=== PATIENT | female | born 1940 | race Caucasian/White ===

== ENCOUNTER → 2017-03-14 | Outpatient (CLI) | payer MEDICARE, OTHER ==
--- NOTE | 2017-03-14 13:43 | BD ---
EXAMINATION TYPE: MG DEXA axial skeleton. DATE OF EXAM: 03/14/2017 COMPARISON: NONE CLINICAL HISTORY: Breast CA C50.412, PMS N95.1 Height: 198 Weight: 5 FT 2 1/2 IN FRAX RISK QUESTIONS: Alcohol (3 or more units per day): NO Family History (Parent hip fracture): NO Glucocorticoids (More than 3mos): YES (Ex: prednisone, prednisolone, methylprednisolone, dexamethasone, and hydrocortisone). History of Fracture in Adulthood: NO Secondary Osteoporosis: 1. Type 1 Diabetes: NO 2. Hyperthyroidism: NO 3. Menopause before 45: NO 4. Malnutrition: NO 5. Chronic liver disease: NO Rheumatoid Arthritis: NO Current Tobacco Use: NO RISK FACTORS HISTORY OF: Drink Alcohol: VERY RARELY Active: YES Postmenopausal woman: PARTIAL HYST AGE 40 MEDICATIONS: Prednisone or other steroids: STEROIDS FOR ASTHMA How Lon TIMES DAILY FOR 4 YRS Thyroid Medications: YES Which medication: LEVOTHYROXINE How Long: SINCE AGE 17 Additional Medications: NORVASC,LIPITOR, ZIAC, CENTRUM, PLAVIX, GLIPIZIDE , JANUVIA, FEMARA, SYNTHROI D, QVAR INHALER, ZANTAC, DETROL, B12, VIT D, ZETIA Additional History: BREAST CA RT BREAST AND LEFT BREAST 2003 EXAM MEASUREMENTS: Bone mineral densitometry was performed using the [email or web address] System. Bone mineral density as measured about the Lumbar spine is: ----- L1-L4(G/cm2): 1.250 T Score Values are as follows: ----- L2: 0.3 ----- L3: 0.9 ----- L4: 0.9 ----- L1-L4: 0.6 Bone mineral density has: Decreased -0.3% since study of: 2008 Bone mineral density about the R hip (g/cm2): 0.826 Bone mineral density about the L hip (g/cm2): 0.797 T Score values are as follows: -----R Neck: -1.5 -----L Neck: -1.7 -----R Total: -1.5 -----L Total: -1.5 Bone mineral density has: Decreased -8.6% since study of: 2008 IMPRESSION: Osteopenia (T Score between -2.5 and -1 as noted by T score values There is slightly increased risk of fracture and the patient may be considered for treatment. Re-Screen 2-5 years. MIRTA HIPS NOTE: T-SCORE=SD OF THE YOUNG ADULT MEAN.
== END | disposition home or self-care (01) ==
LOC: RADBDWWP 12:55
PROVIDERS: ATTEND Internal Medicine Hematology & Oncology
DX: M85.852 Other specified disorders of bone density and structure, left thigh (principal); M85.851 Other specified disorders of bone density and structure, right thigh
CPT/HCPCS: 77080

== ENCOUNTER → 2017-03-22 | Outpatient (CLI) | payer MEDICARE, OTHER ==
[2017-03-22 11:21] LABS: CH 30.6; CHCM 33.9; HCT 37.4 % (34.0-46.0); HGB 12.9 gm/dL (11.4-16.0); MCH 31.2 pg (25.0-35.0); MCHC 34.4 g/dL (31.0-37.0); MCV 90.8 fL (80.0-100.0); RBC 4.12 m/uL (3.80-5.40); RDW 13.9 % (11.5-15.5); WBC 6.7 k/uL (3.8-10.6)
[2017-03-22 11:33] LABS: Appearance,Urine Clear (Clear); Bilirubin,Urine Negative (Negative); Glucose,Urine (UA) Negative (Negative); Ketones,Urine Negative (Negative); Leukocyte Esterase,Urine Negative (Negative); Nitrite,Urine Negative (Negative); PH, Urine 6.5 (5.0-8.0); Protein,Urine Trace (Negative); Specific Gravity,Urine 1.015 (1.001-1.035); UA Billing (MACRO vs. MICRO) CHEM; Urobilinogen,Urine <2.0 mg/dL (<2.0)
[2017-03-22 12:01] LABS: ALT 26 U/L (9-52); AST 18 U/L (14-36); Alkaline Phosphatase 60 U/L (38-126); Anion Gap 11 mmol/L; Blood Urea Nitrogen 17 mg/dL (7-17); Calcium 9.8 mg/dL (8.4-10.2); Carbon Dioxide 25 mmol/L (22-30); Chloride 105 mmol/L (98-107); Cholesterol 153 mg/dL (<200); Creatine Kinase 36 U/L (30-135); Glucose 169 mg/dL (74-99); HDL Cholesterol 60 mg/dL (40-60); Non-African American GFR(MDRD) >60 (>60 ml/min/1.73 sqM); Potassium 4.1 mmol/L (3.5-5.1); Sodium 141 mmol/L (137-145); Total Bilirubin 0.6 mg/dL (0.2-1.3); Total Protein 7.2 g/dL (6.3-8.2); Triglycerides 121 mg/dL (<150)
[2017-03-22 12:46] LABS: Hemoglobin A1C 7.3 % (4.2-6.1)
== END | disposition home or self-care (01) ==
LOC: LABWHC1 10:27
PROVIDERS: ATTEND Family Medicine
DX: Z00.00 Encounter for general adult medical examination without abnormal findings (principal); E11.9 Type 2 diabetes mellitus without complications; E55.9 Vitamin D deficiency, unspecified
CPT/HCPCS: 36415; 80053; 80061; 81003; 82043; 82306; 82550; 83036; 84443; 85027

== ENCOUNTER → 2017-11-05 | Outpatient (CLI) | payer MEDICARE, OTHER ==
[2017-11-05 17:24] LABS: Hemoglobin A1C 7.4 % (4.0-6.0)
== END | disposition home or self-care (01) ==
LOC: LABWHC1 08:40
PROVIDERS: ATTEND Family Medicine
DX: E11.9 Type 2 diabetes mellitus without complications (principal)
CPT/HCPCS: 36415; 83036

== ENCOUNTER → 2018-04-17 | Outpatient (CLI) | payer MEDICARE, OTHER ==
[2018-04-17 11:28] LABS: HCT 40.9 % (34.0-46.0); HGB 13.4 gm/dL (11.4-16.0); MCHC 32.9 g/dL (31.0-37.0); MCV 91.1 fL (80.0-100.0); Platelet Count 176 k/uL (150-450); RBC 4.49 m/uL (3.80-5.40); RDW 14.4 % (11.5-15.5); WBC 7.5 k/uL (3.8-10.6)
[2018-04-17 11:32] LABS: Appearance,Urine Clear (Clear); Bilirubin,Urine Negative (Negative); Blood,Urine Negative (Negative); Color,Urine Light Yellow; Glucose,Urine (UA) Negative (Negative); Ketones,Urine Negative (Negative); Leukocyte Esterase,Urine Negative (Negative); Nitrite,Urine Negative (Negative); Protein,Urine Negative (Negative); Specific Gravity,Urine 1.008 (1.001-1.035); Urobilinogen,Urine <2.0 mg/dL (<2.0)
[2018-04-17 11:44] LABS: ALT 29 U/L (9-52); AST 21 U/L (14-36); Albumin 4.2 g/dL (3.5-5.0); Alkaline Phosphatase 66 U/L (38-126); Anion Gap 15 mmol/L; Blood Urea Nitrogen 11 mg/dL (7-17); Calcium 9.8 mg/dL (8.4-10.2); Carbon Dioxide 27 mmol/L (22-30); Chloride 100 mmol/L (98-107); Cholesterol 137 mg/dL (<200); Glucose 164 mg/dL (74-99); HDL Cholesterol 58 mg/dL (40-60); LDL Cholesterol,Calculated 55 mg/dL (0-99); Potassium 4.2 mmol/L (3.5-5.1); Sodium 142 mmol/L (137-145); Total Bilirubin 0.3 mg/dL (0.2-1.3); Total Protein 6.9 g/dL (6.3-8.2); Triglycerides 121 mg/dL (<150)
[2018-04-17 20:00] LABS: Hemoglobin A1C 7.3 % (4.0-6.0)
== END | disposition home or self-care (01) ==
LOC: LABWHC1 10:48
PROVIDERS: ATTEND Family Medicine
DX: Z00.01 Encounter for general adult medical examination with abnormal findings (principal); E11.9 Type 2 diabetes mellitus without complications
CPT/HCPCS: 36415; 80053; 80061; 81003; 82043; 82306; 82570; 83036; 85027

== ENCOUNTER 2018-12-24 15:15 | Emergency (ER) | payer MEDICARE, OTHER ==
[2018-12-24 15:36] VITALS: TEMP 98.6
[2018-12-24] MEDS ORDERED: MECLIZINE 12.5 MG TAB PO STA (16:12)
--- NOTE | 2018-12-24 16:24 | ED ---
General Adult HPI - General Chief complaint: Dizziness Stated complaint: dizziness/diarrhea Time Seen by Provider: 12/24/18 15:49 Source: patient Mode of arrival: wheelchair Limitations: no limitations - History of Present Illness Initial comments: Dictation was produced using [employer] dictation software. please excuse any grammatical, word or spelling errors. Chief Complaint: 78-year-old female with past medical history of asthma, cancer, CVA, diabetes, thyroid disease presents with episode of dizziness. History of Present Illness: Patient states she had an episode of dizziness prior to arrival. She stated lasted for approximately one hour. Patient asymptomatic at this time. Patient has history of symptomatic hyponatremia. She was seen at her PCPs urgent care recently. They did draw labs yesterday however she does not have the results. She was told by urgent care staff that they believe this is somehow related to low sodium. Patient denies any symptoms at this time. Denies any exacerbating or mitigating factors. She states that this episode lasted for approximate 1 hour so spontaneously. Patient has no other complaints at this time. The ROS documented in this emergency department record has been reviewed and confirmed by me. Those systems with pertinent positive or negative responses have been documented in the HPI. All other systems are other negative and/or noncontributory. PHYSICAL EXAM: General Impression: Alert and oriented x3, not in acute distress HEENT: Normocephalic atraumatic, extra-ocular movements intact, pupils equal and reactive to light bilaterally, mucous membranes moist. Cardiovascular: Heart regular rate and rhythm, S1&S2 audible, no murmurs, rubs or gallops Chest: Lungs clear to auscultation bilaterally, no rhonchi, no wheeze, no rales Abdomen: Bowel sounds present, abdomen soft, non-tender, non-distended, no organomegaly Musculoskeletal: Pulses present and equal in all extremities, no peripheral edema Motor: no focal deficits noted Neurological: CN II-XII grossly intact, no focal motor or sensory deficits noted Skin: Intact with no visualized rashes Psych: Normal affect and mood ED course: 78-year-old male presents with chief complaint of dizziness. Patient is asymptomatic at this time. Vital signs upon arrival are within acceptable limits. Laboratory evaluation obtained. CBC, metabolic panel is obtained. Sodium is 132. Chloride is 96. Patient given Antivert with improvement of symptoms. Patient asymptomatic at this time. Patient told that her sodium is low. She is told to have some salt to her food and to continue free water restrictions as recommended by primary care physician. Patient clear for discharge. Told to return to the emergency Department with any worsening symptoms. Patient understandable agreeable to plan. EKG interpretation: Ventricular rate 69, sinus rhythm, NJ interval 220, care is 88, QTC 424. No NJ prolongation, no QTC prolongation, no ST or T-wave changes noted. Overall, this EKG is unremarkable - Related Data Home Medications Medication Instructions Recorded Confirmed ALPRAZolam [Xanax] 0.25 - 0.75 mg PO DAILY PRN 12/24/18 12/24/18 Albuterol Inhaler [Ventolin Hfa 2 puff INHALATION RT-Q6H PRN 12/24/18 12/24/18 Inhaler] Atorvastatin Calcium [Lipitor] 80 mg PO HS 12/24/18 12/24/18 Beclomethasone Dipropionate [Qvar 1 puff INHALATION RT-Q12H 12/24/18 12/24/18 80 mcg] Bisoprol/Hydrochlorothiazide 1 tab PO DAILY 12/24/18 12/24/18 [Bisoprolol-Hctz 10-6.25 mg Tab] Cholecalciferol [Vitamin D3] 400 unit PO BID 12/24/18 12/24/18 Clopidogrel [Plavix] 75 mg PO DAILY 12/24/18 12/24/18 Cyanocobalamin [Vitamin B-12] 500 mcg PO DAILY 12/24/18 12/24/18 Ezetimibe [Zetia] 10 mg PO HS 12/24/18 12/24/18 LORazepam [Ativan] 1 - 1.5 mg PO DIRECTED PRN 12/24/18 12/24/18 Levothyroxine Sodium [Synthroid] 88 mcg PO DAILY 12/24/18 12/24/18 Losartan [Cozaar] 25 mg PO DAILY 12/24/18 12/24/18 Meclizine [Antivert] 25 mg PO TID PRN 12/24/18 12/24/18 Multivitamin/Iron/Folic Acid 1 tab PO DAILY 12/24/18 12/24/18 [Centrum Women Tablet] Ranitidine HCl 150 mg PO BID 12/24/18 12/24/18 Tolterodine [Detrol] 2 mg PO BID 12/24/18 12/24/18 amLODIPine [Norvasc] 5 mg PO HS 12/24/18 12/24/18 glipiZIDE [Glucotrol] 5 mg PO AC-BID 12/24/18 12/24/18 sitaGLIPtin PHOSPHATE [Januvia] 50 mg PO HS 12/24/18 12/24/18 Allergies Allergy/AdvReac Type Severity Reaction Status Date / Time cortisone Allergy Unknown Verified 12/24/18 16:13 isoniazid Allergy Unknown Verified 12/24/18 16:13 metformin [From Glucophage] Allergy Unknown Verified 12/24/18 16:13 TB LOYD Allergy Unknown Uncoded 12/24/18 15:36 Review of Systems ROS Statement: Those systems with pertinent positive or pertinent negative responses have been documented in the HPI. ROS Other: All systems not noted in ROS Statement are negative. Past Medical History Past Medical History: Asthma, Cancer, CVA/TIA, Diabetes Mellitus, Thyroid Disorder Additional Past Medical History / Comment(s): BREAST CANCER History of Any Multi-Drug Resistant Organisms: None Reported Past Surgical History: Cholecystectomy, Hysterectomy Past Psychological History: No Psychological Hx Reported Smoking Status: Never smoker Past Alcohol Use History: None Reported Past Drug Use History: None Reported General Exam Limitations: no limitations Course Vital Signs 12/24/18 12/24/18 12/24/18 15:32 16:30 17:00 Temperature 98.6 F Pulse Rate 67 72 69 Respiratory 18 30 H 10 L Rate Blood Pressure 188/72 147/73 O2 Sat by Pulse 97 98 Oximetry 12/24/18 17:30 Temperature Pulse Rate 63 Respiratory 13 Rate Blood Pressure 153/76 O2 Sat by Pulse 99 Oximetry Medical Decision Making - Lab Data Result diagrams: 12/24/18 16:22 12/24/18 16:22 Lab Results 12/24/18 12/24/18 Range/Units 16:22 16:22 WBC 7.9 (3.8-10.6) k/uL RBC 4.30 (3.80-5.40) m/uL Hgb 12.8 (11.4-16.0) gm/dL Hct 38.8 (34.0-46.0) % MCV 90.4 (80.0-100.0) fL MCH 29.7 (25.0-35.0) pg MCHC 32.9 (31.0-37.0) g/dL RDW 14.2 (11.5-15.5) % Plt Count 197 (150-450) k/uL Neutrophils % (Manual) 83 % Lymphocytes % (Manual) 12 % Monocytes % (Manual) 3 % Eosinophils % (Manual) 1 % Basophils % (Manual) 1 % Neutrophils # DISASTER DIRECTOR Neutrophils # (Manual) 6.56 (1.3-7.7) k/uL Lymphocytes # (Manual) 0.95 L (1.0-4.8) k/uL Monocytes # (Manual) 0.24 (0-1.0) k/uL Eosinophils # (Manual) 0.08 (0-0.7) k/uL Basophils # (Manual) 0.08 (0-0.2) k/uL Nucleated RBCs 0 (0-0) /100 WBC Manual Slide Review Performed Poikilocytosis (manual Present Sodium 132 L (137-145) mmol/L Potassium 4.4 (3.5-5.1) mmol/L Chloride 96 L (98-107) mmol/L Carbon Dioxide 26 (22-30) mmol/L Anion Gap 10 mmol/L BUN 11 (7-17) mg/dL Creatinine 0.68 (0.52-1.04) mg/dL Est GFR (CKD-EPI)AfAm >90 (>60 ml/min/1.73 sqM) Est GFR (CKD-EPI)NonAf 84 (>60 ml/min/1.73 sqM) Glucose 202 H (74-99) mg/dL Calcium 9.8 (8.4-10.2) mg/dL Magnesium 1.7 (1.6-2.3) mg/dL Disposition Clinical Impression: Dizzy Disposition: HOME SELF-CARE Condition: Good Instructions (If sedation given, give patient instructions): Dizziness (ED) Is patient prescribed a controlled substance at d/c from ED?: No Referrals: Juliocesar Roach DO [Primary Care Provider] - 1-2 days Time of Disposition: 18:23
[2018-12-24 16:58] LABS: Anion Gap 10 mmol/L; Blood Urea Nitrogen 11 mg/dL (7-17); Calcium 9.8 mg/dL (8.4-10.2); Carbon Dioxide 26 mmol/L (22-30); Chloride 96 mmol/L (98-107); Glucose 202 mg/dL (74-99); Magnesium 1.7 mg/dL (1.6-2.3); Potassium 4.4 mmol/L (3.5-5.1); Sodium 132 mmol/L (137-145)
[2018-12-24 17:06] LABS: HCT 38.8 % (34.0-46.0); HGB 12.8 gm/dL (11.4-16.0); MCH 29.7 pg (25.0-35.0); MCHC 32.9 g/dL (31.0-37.0); MCV 90.4 fL (80.0-100.0); Platelet Count 197 k/uL (150-450); RDW 14.2 % (11.5-15.5); WBC 7.9 k/uL (3.8-10.6)
[2018-12-24 17:42] VITALS: BP 153/76; PULSE 63; RESP 13
--- NOTE | 2018-12-24 18:06 | XR ---
EXAMINATION TYPE: XR chest 2V DATE OF EXAM: 12/24/2018 COMPARISON: 06/19/2012 HISTORY: Dizziness TECHNIQUE: Frontal and lateral views of the chest are obtained. FINDINGS: Heart and mediastinum are normal. Lungs are clear. Diaphragm is normal. There are chest le ads. Bony thorax is intact. IMPRESSION: No active cardiopulmonary disease. Normal heart. No change.
[2018-12-24 18:10] LABS: Basophils # (M) 0.08 k/uL (0-0.2); Eosinophils # (M) 0.08 k/uL (0-0.7); Lymphocytes # (M) 0.95 k/uL (1.0-4.8); Monocytes # (M) 0.24 k/uL (0-1.0); Neutrophils # (M) 6.56 k/uL (1.3-7.7); Neutrophils % (M) 83 %; Nucleated Red Blood Cells 0 /100 WBC (0-0); Total Cells Counted 100
[2018-12-24 18:12] LABS: Poikilocytosis (M) Present
== END 2018-12-24 18:48 | disposition home or self-care (01) ==
LOC: EC 15:15
DX: R42 Dizziness and giddiness (principal); J45.909 Unspecified asthma, uncomplicated; E11.9 Type 2 diabetes mellitus without complications; E07.9 Disorder of thyroid, unspecified; Z86.73 Personal history of transient ischemic attack (TIA), and cerebral infarction without residual deficits; Z85.3 Personal history of malignant neoplasm of breast; Z79.899 Other long term (current) drug therapy; Z79.890 Hormone replacement therapy; Z79.01 Long term (current) use of anticoagulants; Z79.51 Long term (current) use of inhaled steroids; Z79.84 Long term (current) use of oral hypoglycemic drugs; Z88.8 Allergy status to other drugs, medicaments and biological substances
CPT/HCPCS: 36415; 71046; 80048; 83735; 85025; 93005; 99284

== ENCOUNTER → 2019-03-23 | Outpatient (CLI) | payer MEDICARE, OTHER ==
--- NOTE | 2019-03-23 11:14 | BD ---
EXAMINATION TYPE: Axial Bone Density DATE OF EXAM: 03/23/2019 COMPARISON: 2017 CLINICAL HISTORY: Postmenopausal female. Osteoporosis screening. Height: 5 FT 1 IN Weight: 187 FRAX RISK QUESTIONS: Glucocorticoids (More than 3mos): YES (Ex: prednisone, prednisolone, methylprednisolone, dexamethasone, and hydrocortisone). RISK FACTORS HISTORY OF: Active: NO Postmenopausal woman: PART LIDIAST AGE 40 Lost more than 2 inches in height since high school: YES Poor Health: FAIR MEDICATIONS: Prednisone or other steroids: QVAR How Long: APPROX 5 YEARS Thyroid Medications: YES Which medication: LEVOTHYROXINE How Long: AGE 17 Additional Medications: NORVASC, LIPITOR, ZIAC, PLAVIX, GLIPIZIDE, JANUVIA, LEVOTHYROXINE, COZAAR, QV AR, ZANTAC, DETROL, VIT B12, VIT D ZETIA Additional History: BREAST CANCER BILATERAL 2003 AND 2015 RADIATION EXAM MEASUREMENTS: Bone mineral densitometry was performed using the [employer] System. Bone mineral density as measured about the Lumbar spine is: ----- L1-L4(G/cm2): 1.248 T Score Values are as follows: ----- L2: 0.3 ----- L3: 1.2 ----- L4: 1.2 ----- L1-L4: 0.6 Bone mineral density has: INCREASED 2.3 % since study of: 2016 Bone mineral density about the R hip (g/cm2): 0.768 Bone mineral density about the L hip (g/cm2): 0.740 T Score values are as follows: -----R Neck: -1.9 -----L Neck: -2.1 -----R Total: -1.6 -----L Total: -1.3 Bone mineral density has: DECREASED -6.1 % since study of: 2017 IMPRESSION: Osteopenia (T Score between -2.5 and -1). There is slightly increased risk of fracture and the patient may be considered for treatment. Re-Screen 2-5 years. NOTE: T-SCORE=SD OF THE YOUNG ADULT MEAN.
== END | disposition home or self-care (01) ==
LOC: RADBDWWP 09:32
PROVIDERS: ATTEND Internal Medicine Hematology & Oncology
DX: M85.80 Other specified disorders of bone density and structure, unspecified site (principal); N95.1 Menopausal and female climacteric states; Z79.890 Hormone replacement therapy; C50.412 Malignant neoplasm of upper-outer quadrant of left female breast
CPT/HCPCS: 77080

== ENCOUNTER → 2019-06-04 | Outpatient (CLI) | payer MEDICARE, OTHER ==
--- NOTE | 2019-06-04 20:34 | CT ---
EXAMINATION TYPE: CT abdomen pelvis w con DATE OF EXAM: 06/04/2019 COMPARISON: None HISTORY: Right lower quadrant abdominal pain. CT DLP: 1449 mGycm CONTRAST: CT scan of the abdomen and pelvis is performed with Oral Contrast and with IV Contrast, patient injec solange with 100ml mL of Isovue 300. FINDINGS: LUNG BASES-: No visible nodule. No infiltrate. LIVER/GB: The gallbladder is surgically absent. No space occupying hepatic lesion. Biliary tree is of normal caliber. PANCREAS: No inflammation. No distinct mass. SPLEEN: No splenic enlargement. No lesion seen. ADRENALS: No nodule. No thickening. KIDNEYS/BLADDER: No hydronephrosis. No nephrolithiasis. Simple renal cyst mid right kidney measurin g 3.7 cm. Urinary bladder grossly unremarkable. BOWEL: Visualization of the appendix. Normal bowel caliber. No inflammation. Diverticulosis without diverticulitis. GENITAL ORGANS: Hysterectomy changes noted. Ovaries appear unremarkable. LYMPH NODES: No greater than 1cm abdominal or pelvic lymph nodes are appreciated. AORTA: No significant abnormality. OSSEOUS STRUCTURES: No significant abnormality is seen. OTHER:'S operative changes right breast. IMPRESSION: 1. Sigmoid diverticulosis without diverticulitis. 2. Right renal cyst simple in appearance.
== END | disposition home or self-care (01) ==
LOC: RADCTMAIN 15:44
PROVIDERS: ATTEND Surgery
DX: K57.32 Diverticulitis of large intestine without perforation or abscess without bleeding (principal); N28.1 Cyst of kidney, acquired
CPT/HCPCS: 82565; 84520; 74177; 36415; Q9967

== ENCOUNTER → 2019-06-10 | Day surgery (SDC) | payer MEDICARE, OTHER ==
[2019-06-05 13:46] VITALS: BMI 32.2
[~2019-06-10] MED LIST: LACTATED RINGERS 1,000 ML IV SCH; LIDOCAINE 1% 20 ML VIAL (10MG/ML) FOR IV START INTRADERMA PRN; LIDOCAINE 1% INJ 10MG/ML (20 ML MDV) ONE; MIDAZOLAM 2 MG/2 ML VIAL IV PRN; PROPOFOL 10 MG/ML 20 ML VIAL IV ONE
[2019-06-10 07:12] VITALS: TEMP 98.6
[2019-06-10 07:25] LABS: Glucose,Whole Blood 161 mg/dL (75-99)
--- NOTE | 2019-06-10 08:10 | P.PCN ---
Date of Procedure: 06/10/19 Procedure(s) Performed: PREOPERATIVE DIAGNOSIS: Change in bowel habits POSTOPERATIVE DIAGNOSIS: Descending colon polyp 60 cm, diverticulosis PROCEDURE: Colonoscopy with snare polypectomy ANESTHESIA: MAC SURGEON: Kirk Wan M.D. SPECIMENS: Polyp ENDOSCOPIC PROCEDURE: The patient was placed on the endoscopy table in the left decubitus position. The Olympus colonoscope was inserted into the anus and passed under direct visualization to the base of the cecum. The appendiceal orifice was visualized. From that point the scope was slowly withdrawn inspecting all surfaces carefully. There were no neoplastic inflammatory or polypoid lesions throughout the cecum, ascending, or transverse colon. In the descending colon at 60 cm a 7 mm polyp that appeared indurated was removed using the snare with cautery technique. This was sent to pathology for close evaluation. The remainder of the descending sigmoid and rectum appeared normal. The colorectal anastomosis was widely patent. The patient had mild diverticulosis involving the left side of the colon. Digital rectal examination was normal. The patient was taken to the recovery room in stable condition per anesthesia guidelines. RECOMMENDATIONS: Await biopsy results. Anticipate follow-up colonoscopy 5 years.
[2019-06-10 08:13] VITALS: RESP 16
[2019-06-10 08:30] VITALS: BP 108/58; PULSE 60
== END | disposition home or self-care (01) ==
LOC: ORWHC2ENDO 06:43
PROVIDERS: ATTEND Surgery
DX: D12.4 Benign neoplasm of descending colon (principal); K57.30 Diverticulosis of large intestine without perforation or abscess without bleeding; Z88.8 Allergy status to other drugs, medicaments and biological substances; E03.9 Hypothyroidism, unspecified; E11.9 Type 2 diabetes mellitus without complications; I10 Essential (primary) hypertension; J45.909 Unspecified asthma, uncomplicated; E78.5 Hyperlipidemia, unspecified; E66.9 Obesity, unspecified; Z68.32 Body mass index [BMI] 32.0-32.9, adult; Z90.49 Acquired absence of other specified parts of digestive tract; Z79.899 Other long term (current) drug therapy; Z79.84 Long term (current) use of oral hypoglycemic drugs; Z80.3 Family history of malignant neoplasm of breast; Z80.42 Family history of malignant neoplasm of prostate; Z86.73 Personal history of transient ischemic attack (TIA), and cerebral infarction without residual deficits
CPT/HCPCS: 88305; 45385; J2001; J2704

== ENCOUNTER → 2020-07-13 | Outpatient (CLI) | payer MEDICARE, OTHER ==
--- NOTE | 2020-07-13 14:24 | MM ---
Reason for exam: screening (asymptomatic). Last mammogram was performed 1 year and 3 months ago. History: Patient is postmenopausal, has history of breast cancer at age 62, and is nulliparous. Family history of breast cancer in maternal aunt, breast cancer in sister at age 55, breast cancer in paternal aunt, and breast cancer in paternal cousin. Malignant MG stereo VAD BX LT of the left breast, June 19, 2016. Lumpectomy of the left breast, 2015. Radiation therapy of the right breast, 2015. Ultrasound-guided core biopsy of the right breast, October 29, 2003. Lumpectomy of the right breast, 2003. Chemotherapy, 2003. Radiation therapy, 2003. Cyst aspiration of the left breast. 2 core biopsies of the right breast. Took antineoplastic for 2 years beginning at age 75. Physical Findings: A clinical breast exam by your physician is recommended on an annual basis and results should be correlated with mammographic findings. MG 3D Diag Mammo W/Cad MIRTA Bilateral CC and MLO view(s) were taken. XCCL view(s) were taken of the right breast. Prior study comparison: April 03, 2019, bilateral MG 3d diag mammo w/cad MIRTA. June 04, 2016, bilateral MG 3d diag mammo w/cad MIRTA. The breast tissue is heterogeneously dense. This may lower the sensitivity of mammography. Benign appearing bilateral calcifications. Post surgical changes on both breasts. These results were verbally communicated with the patient and result sheet given to the patient on 07/13/20. ASSESSMENT: Benign, BI-RAD 2 RECOMMENDATION: Follow-up diagnostic mammogram of both breasts in 1 year.
== END | disposition home or self-care (01) ==
LOC: RADMAMWWP 12:43
PROVIDERS: ATTEND Internal Medicine Hematology & Oncology
DX: Z08 Encounter for follow-up examination after completed treatment for malignant neoplasm (principal); Z85.3 Personal history of malignant neoplasm of breast
CPT/HCPCS: 77066; G0279; 77062

== ENCOUNTER → 2021-07-25 | Outpatient (CLI) | payer MEDICARE, OTHER ==
--- NOTE | 2021-07-25 13:57 | MM ---
Reason for exam: additional evaluation requested from prior study. Last mammogram was performed 1 year ago. History: Patient is postmenopausal, has history of breast cancer at age 62, and is nulliparous. Family history of breast cancer in maternal aunt, breast cancer in sister at age 55, breast cancer in paternal aunt, and breast cancer in paternal cousin. Malignant MG stereo VAD BX LT of the left breast, June 19, 2016. Lumpectomy of the left breast, 2015. Radiation therapy of the right breast, 2015. Ultrasound-guided core biopsy of the right breast, October 29, 2003. Lumpectomy of the right breast, 2003. Chemotherapy, 2003. Radiation therapy, 2003. Cyst aspiration of the left breast. 2 core biopsies of the right breast. Took antineoplastic for 2 years beginning at age 75. Physical Findings: Nurse did not find any significant physical abnormalities on exam. MG 3D Diag Mammo W/Cad MIRTA Bilateral CC and MLO view(s) were taken. XCCL view(s) were taken of the right breast. Prior study comparison: July 13, 2020, bilateral MG 3d diag mammo w/cad MIRTA. April 03, 2019, bilateral MG 3d diag mammo w/cad MIRTA. The breast tissue is heterogeneously dense. This may lower the sensitivity of mammography. Finding: Architectural distortion in both breasts consistent with known lumpectomy changes. Previous mammotome biopsy in the left breast. There is no discrete abnormality. Skin thickening left breast. These results were verbally communicated with the patient and result sheet given to the patient on 07/25/21. ASSESSMENT: Benign, BI-RAD 2 RECOMMENDATION: Follow-up diagnostic mammogram of both breasts in 1 year.
== END | disposition home or self-care (01) ==
LOC: RADMAMWWP 09:23
PROVIDERS: ATTEND Internal Medicine Hematology & Oncology
DX: R92.8 Other abnormal and inconclusive findings on diagnostic imaging of breast (principal); Z85.3 Personal history of malignant neoplasm of breast
CPT/HCPCS: 77066; G0279; 77062

== ENCOUNTER → 2022-08-17 | Outpatient (CLI) | payer MEDICARE, OTHER ==
--- NOTE | 2022-08-20 10:44 | MM ---
Reason for Exam: Screening (asymptomatic). Last mammogram was performed 1 year(s) and 1 month(s) ago. Patient History: Menarche at age 17. Patient has no children. Hysterectomy at age 40. Postmenopausal. Breast cancer, age 62. 2003, Lumpectomy on the Right side. Core Biopsy on the Right side. Core Biopsy on the Right side. Cyst Aspiration on the Left side. 2015, Lumpectomy on the Left side. 06/19/2016, Malignant Core Biopsy on the left side. 2003, Chemotherapy. 2003, Radiation Therapy. 2015, Radiation Therapy on the right side. Paternal cousin had breast cancer. Paternal aunt had breast cancer. Maternal aunt had breast cancer. Sister had breast cancer, age 55. Prior Study Comparison: 04/03/2019 Bilateral Diagnostic Mammogram, [facility]. 07/13/2020 Bilateral Diagnostic Mammogram, [facility]. 07/25/2021 Bilateral Diagnostic Mammogram, [facility]. Tissue Density: The breast tissue is heterogeneously dense. This may lower the sensitivity of mammography. Findings: Analyzed By CAD. Persistent distal reduction with surgical clips and large dystrophic calcification in the left breast upper aspect. Persistent distortion with surgical clips and scarring posterior upper outer aspect right breast. Increased skin thickening bilaterally is redemonstrated. Mammotome biopsy clip left breast again seen. Few scattered small benign-appearing round and linear calcifications bilaterally redemonstrated. There is no suspicious new group of microcalcifications or new suspicious mass in either breast. Overall Assessment: Benign, BI-RAD 2 Management: Diagnostic Mammogram of both breasts in 1 year. A clinical breast exam by your physician is recommended on an annual basis and results should be correlated with mammographic findings. Electronically signed and approved by: Kevan Rangel M.D.
== END | disposition home or self-care (01) ==
LOC: RADMAMWWP 15:57
PROVIDERS: ATTEND Internal Medicine Hematology & Oncology
DX: Z12.31 Encounter for screening mammogram for malignant neoplasm of breast (principal); Z78.0 Asymptomatic menopausal state; Z80.3 Family history of malignant neoplasm of breast; Z98.890 Other specified postprocedural states
CPT/HCPCS: 77063; 77067

== ENCOUNTER 2023-06-23 23:22 | Emergency (ER) | payer MEDICARE, OTHER ==
[2023-06-23 23:41] LABS: Glucose,Whole Blood 148 mg/dL (70-110)
[2023-06-23 23:51] VITALS: TEMP 98.4
[2023-06-24 00:04] LABS: HCT 41.6 % (34.0-46.0); HGB 13.7 gm/dL (11.4-16.0); MCH 30.4 pg (25.0-35.0); MCV 92.2 fL (80.0-100.0); Mean Platelet Volume 8.6; Platelet Count 161 k/uL (150-450); RBC 4.51 m/uL (3.80-5.40); RDW 13.6 % (11.5-15.5); WBC 11.5 k/uL (3.8-10.6)
[2023-06-24 00:09] LABS: ALT 22 U/L (4-34); AST 32 U/L (14-36); African American GFR (CKD) >90 (>60 ml/min/1.73 sqM); Albumin 4.4 g/dL (3.5-5.0); Alkaline Phosphatase 76 U/L (38-126); Anion Gap 11 mmol/L; Blood Urea Nitrogen 15 mg/dL (7-17); Calcium 9.8 mg/dL (8.4-10.2); Carbon Dioxide 21 mmol/L (22-30); Chloride 95 mmol/L (98-107); Glucose 152 mg/dL (74-99); Non-African American GFR(CKD) 84 (>60 ml/min/1.73 sqM); Potassium 4.4 mmol/L (3.5-5.1); Sodium 127 mmol/L (137-145); Total Bilirubin 0.8 mg/dL (0.2-1.3); Total Protein 7.5 g/dL (6.3-8.2)
--- NOTE | 2023-06-24 00:16 | XR ---
EXAM: XR Chest, 1 View CLINICAL HISTORY: ITS.REASON XR Reason: dizzy TECHNIQUE: Frontal view of the chest. COMPARISON: 12/24/2018 FINDINGS: Lungs: Unremarkable. No consolidation. Pleural space: Unremarkable. No pneumothorax. No pleural effusions. Heart: Unremarkable. No cardiomegaly. Mediastinum: Unremarkable. Bones/joints: No acute osseous abnormalities. IMPRESSION: No acute cardiopulmonary disease.
[2023-06-24 01:30] LABS: Band Neutrophils % 4 %; Lymphocytes # (M) 1.04 k/uL (1.0-4.8); Monocytes # (M) 0.92 k/uL (0-1.0); Neutrophils % (M) 79 %; Nucleated Red Blood Cells 0 /100 WBC (0-0); RBC Morphology Normal; Total Cells Counted 100
[2023-06-24] MEDS ORDERED: SODIUM CHLORIDE 0.9% 1,000 ML IV STA (02:26)
--- NOTE | 2023-06-24 02:48 | CT ---
EXAM: CT Head Without Intravenous Contrast CLINICAL HISTORY: ITS.REASON CT Reason: dizziness TECHNIQUE: Axial computed tomography images of the head/brain without intravenous contrast. CTDI is 49.2 mGy and DLP is 1202.5 mGy-cm. This CT exam was performed using one or more of the following dose reduction techniques: automated exposure control, adjustment of the mA and/or kV according to patient size, and/or use of iterative reconstruction technique. COMPARISON: 06/19/2012 FINDINGS: Brain: Unremarkable. No hemorrhage. No significant white matter disease. No edema. Ventricles: Unremarkable. No ventriculomegaly. Bones/joints: Unremarkable. No acute fracture. Soft tissues: Unremarkable. Sinuses: Unremarkable as visualized. No acute sinusitis. Mastoid air cells: Unremarkable as visualized. No mastoid effusion. IMPRESSION: Normal head/brain CT.
--- NOTE | 2023-06-24 04:25 | ED ---
Dizziness HPI - General Chief Complaint: Dizziness Stated Complaint: Reaction to Medication Time Seen by Provider: 06/24/23 01:28 Source: patient, EMS Mode of arrival: EMS - History of Present Illness Initial Comments: 82-year-old female presenting to the ED with a chief complaint of dizziness. Patient states today she has had 2 episodes of dizziness. Patient states these episodes lasted 1-3 hours each. Denies any known provoking factors. No alleviating or aggravating factors. Patient states that during these episodes, feels as if she is off balance and is going to fall forward. States that she had to brace herself against the wall to keep upright. Patient also notes a one-day history of lower abdominal pain. Patient states that she is baseline incontinent of urine and is unsure if she is having any increased frequency or urgency however denies dysuria hematuria. Denies changes in bowel habits. Denies numbness or weakness. Per son at bedside agent is acting at baseline. Denies chest pain or shortness of breath. No other complaints. - Related Data Home Medications Medication Instructions Recorded Confirmed ALPRAZolam [Xanax] 0.25 - 0.75 mg PO DAILY PRN 12/24/18 06/10/19 Albuterol Inhaler [Ventolin Hfa 2 puff INHALATION RT-Q6H PRN 12/24/18 06/10/19 Inhaler] Atorvastatin Calcium [Lipitor] 80 mg PO HS 12/24/18 06/10/19 Beclomethasone Dipropionate [Qvar 1 puff INHALATION RT-Q12H 12/24/18 06/10/19 80 mcg] Bisoprolol/Hydrochlorothiazide 1 tab PO DAILY 12/24/18 06/10/19 [Bisoprolol-Hctz 10-6.25 mg Tab] Cholecalciferol [Vitamin D3] 400 unit PO BID 12/24/18 06/10/19 Clopidogrel [Plavix] 75 mg PO DAILY 12/24/18 06/10/19 Cyanocobalamin [Vitamin B-12] 500 mcg PO DAILY 12/24/18 06/10/19 Ezetimibe [Zetia] 10 mg PO HS 12/24/18 06/10/19 LORazepam [Ativan] 1 - 1.5 mg PO DIRECTED PRN 12/24/18 06/10/19 Levothyroxine Sodium [Synthroid] 88 mcg PO DAILY 12/24/18 06/10/19 Losartan [Cozaar] 25 mg PO DAILY 12/24/18 06/10/19 Meclizine [Antivert] 25 mg PO TID PRN 12/24/18 06/10/19 Multivitamin/Iron/Folic Acid 1 tab PO DAILY 12/24/18 06/10/19 [Centrum Women Tablet] Tolterodine [Detrol] 2 mg PO BID 12/24/18 06/10/19 amLODIPine [Norvasc] 5 mg PO HS 12/24/18 06/10/19 glipiZIDE [Glucotrol] 5 mg PO AC-BID 12/24/18 06/10/19 raNITIdine HCL [Zantac] 150 mg PO BID 12/24/18 06/10/19 sitaGLIPtin PHOSPHATE [Januvia] 50 mg PO PC-SUPPER 12/24/18 06/10/19 Allergies Allergy/AdvReac Type Severity Reaction Status Date / Time cortisone Allergy Unknown Verified 06/05/19 13:24 isoniazid Allergy Unknown Verified 06/05/19 13:24 metformin [From Glucophage] Allergy Unknown Verified 06/05/19 13:24 TB LOYD Allergy Unknown Uncoded 06/05/19 13:24 Review of Systems ROS Statement: Those systems with pertinent positive or pertinent negative responses have been documented in the HPI. ROS Other: All systems not noted in ROS Statement are negative. Past Medical History Past Medical History: Asthma, Cancer, CVA/TIA, Diabetes Mellitus, GERD/Reflux, Hyperlipidemia, Hypertension, Thyroid Disorder Additional Past Medical History / Comment(s): RT BREAST CANCER 2004 chemo, radiation,lumpectomy,LT breast cancer 2016 with radiation and hormonal therapy and lumpectomy, change in bowel movement,diverticulitis. tia possible seizure 2005, urinary incontinence History of Any Multi-Drug Resistant Organisms: None Reported Past Surgical History: Bowel Resection, Breast Surgery, Cholecystectomy, Hysterectomy Additional Past Surgical History / Comment(s): tila breast lumpectomy Past Anesthesia/Blood Transfusion Reactions: Previous Problems w/ Anesthesia Additional Past Anesthesia/Blood Transfusion Reaction / Comment(s): 2003 dizziness after anesthesia Past Psychological History: Anxiety Smoking Status: Never smoker Past Alcohol Use History: Rare Past Drug Use History: None Reported - Past Family History Father Family Medical History: Cancer Additional Family Medical History / Comment(s): prostate with metastasis Daughter(s) Family Medical History: Cancer Additional Family Medical History / Comment(s): breast cancer Sister(s) Additional Family Medical History / Comment(s): breast bleed during Brother(s) Family Medical History: Blood Disorder Additional Family Medical History / Comment(s): as infant of hemophilia General Exam Limitations: no limitations General appearance: alert, in no apparent distress Eye exam: Present: normal appearance, PERRL, EOMI ENT exam: Present: mucous membranes moist Neck exam: Present: normal inspection Respiratory exam: Present: normal lung sounds bilaterally Cardiovascular Exam: Present: regular rate, normal rhythm GI/Abdominal exam: Present: soft (No tenderness to palpation. No rebound guarding or rigidity.) Extremities exam: Present: normal inspection, other (Strength and Sensation equal and intact of bilateral upper and lower extremities.) Back exam: Present: normal inspection Neurological exam: Present: alert, oriented X3, CN II-XII intact, normal gait Psychiatric exam: Present: normal affect, normal mood Skin exam: Present: warm, dry Course Vital Signs 06/23/23 06/24/23 23:48 02:27 Temperature 98.4 F Pulse Rate 64 Pulse Rate [ 67 Right Sitting Pulse Oximetery ] Pulse Rate [ 67 Right Standing Pulse Oximetery ] Pulse Rate [ 60 Right Supine Pulse Oximetery ] Respiratory 18 20 Rate Blood Pressure 118/63 Blood Pressure 159/81 [Right Arm Sitting] Blood Pressure 132/82 [Right Arm Standing] Blood Pressure 152/73 [Right Arm Supine] O2 Sat by Pulse 96 97 Oximetry Medical Decision Making - Medical Decision Making Was pt. sent in by a medical professional or institution (, PA, BUMPER MACHINE OPERATOR, urgent care, hospital, or care home...) When possible be specific @ -No Did you speak to anyone other than the patient for history (EMS, parent, family, police, friend...)? What history was obtained from this source @ -No Did you review nursing and triage notes (agree or disagree)? Why? @ -I reviewed and agree with nursing and triage notes Were old charts reviewed (outside hosp., previous admission, EMS record, old EKG, old radiological studies, urgent care reports/EKG's, care home records)? Report findings @ -No old charts were reviewed Differential Diagnosis (chest pain, altered mental status, abdominal pain women, abdominal pain men, vaginal bleeding, weakness, fever, dyspnea, syncope, headach e, dizziness, GI bleed, back pain, seizure, CVA, palpatations, mental health, musculoskeletal)? @ -Differential Dizziness: Benign paroxysmal positional Vertigo, Menieres disease, otitis media, acoustic neuroma, vertebrobasilar insufficiency, cerebellar stroke, encephalitis, hyp ovolemic, arrhythmia, coronary artery syndrome, anemia, this is not meant to be an all-inclusive list Differential Abdominal Pain Women: Appendicitis, Cholecystitis, diverticulosis, ischemic bowel, pancreatitis, hepatitis, UTI, gastroenteritis, AAA, incarcerated hernia, bowel obstruction, constipation, inflammatory bowel, hepatitis, peptic ulcer disease, splenic infarction, perforated viscus, vulvitis, ovarian torsion, PID, kidney stone, placenta abruption, this is not meant to be an all-inclusive list EKG interpreted by me (3pts min.). @ -As above X-rays interpreted by me (1pt min.). @ -None done CT interpreted by me (1pt min.). @ -None done U/S interpreted by me (1pt. min.). @ -None done What testing was considered but not performed or refused? (CT, X-rays, U/S, labs)? Why? @ -None What meds were considered but not given or refused? Why? @ -None Did you discuss the management of the patient with other professionals (professionals i.e. , PA, BUMPER MACHINE OPERATOR, lab, RT, psych nurse, social service director, special events director, teacher, hospital security officer, case management director)? Give summary @ -No Was smoking cessation discussed for >3mins.? @ -No Was critical care preformed (if so, how long)? @ -No Were there social determinants of health that impacted care today? How? (Homelessness, low income, unemployed, alcoholism, drug addiction, transportation, low edu. Level, literacy, decrease access to med. care, penitentiary, rehab)? @ -No Was there de-escalation of care discussed even if they declined (Discuss DNR or withdrawal of care, Hospice)? DNR status @ -No What co-morbidities impacted this encounter? (DM, HTN, Smoking, COPD, CAD, Cancer, CVA, ARF, Chemo, Hep., AIDS, mental health diagnosis, sleep apnea, morbid obesity)? @ -None Was patient admitted / discharged? Hospital course, mention meds given and route, prescriptions, significant lab abnormalities, going to OR and other pertinent info. @ -Discharge A 82-year-old female presenting to the ED with a complaint of dizziness. Patient states today has had intermittent episodes lasting 1-3 hours of feeling like she is off balance. She also notes 1 day history of lower abdominal pain. Patient states that she is baseline incontinent of urine. Laboratory studies reveal an elevated white blood cell count 11.5 neutrophils 9.5. UA shows no evidence of infection. Chemistry panel reveals sodium [address] brain shows no acute findings. She was provided IV fluids here in the ED. Orthostatics are main stable. This time, felt patient stable for discharge as patient is completely asymptomatic. Discharged home in stable condition. Discussed return precautions with patient who verbalizes agreement. Undiagnosed new problem with uncertain prognosis? @ -No Drug Therapy requiring intensive monitoring for toxicity (Heparin, Nitro, Insulin, Cardizem)? @ -No Were any procedures done? @ -No Diagnosis/symptom? @ -Dizziness, lower abdominal pain Acute, or Chronic, or Acute on Chronic? @ -Acute Uncomplicated (without systemic symptoms) or Complicated (systemic symptoms)? @ -Uncomplicated Side effects of treatment? @ -No Exacerbation, Progression, or Severe Exacerbation? @ -No Poses a threat to life or bodily function? How? (Chest pain, USA, MA, pneumonia, PE, COPD, DKA, ARF, appy, cholecystitis, CVA, Diverticulitis, Homicidal, Suicidal, threat to staff... and all critical care pts) @ -No - Lab Data Result diagrams: 06/23/23 23:42 06/23/23 23:42 Lab Results 06/23/23 06/23/23 06/23/23 Range/Units 23:39 23:42 23:42 WBC 11.5 H (3.8-10.6) k/uL RBC 4.51 (3.80-5.40) m/uL Hgb 13.7 (11.4-16.0) gm/dL Hct 41.6 (34.0-46.0) % MCV 92.2 (80.0-100.0) fL MCH 30.4 (25.0-35.0) pg MCHC 33.0 (31.0-37.0) g/dL RDW 13.6 (11.5-15.5) % Plt Count 161 (150-450) k/uL MPV 8.6 Neutrophils % (Manual) 79 % Band Neuts % (Manual) 4 % Lymphocytes % (Manual) 9 % Monocytes % (Manual) 8 % Neutrophils # (Manual) 9.50 H (1.3-7.7) k/uL Lymphocytes # (Manual) 1.04 (1.0-4.8) k/uL Monocytes # (Manual) 0.92 (0-1.0) k/uL Nucleated RBCs 0 (0-0) /100 WBC Manual Slide Review Performed RBC Morphology Normal Sodium 127 L (137-145) mmol/L Potassium 4.4 (3.5-5.1) mmol/L Chloride 95 L (98-107) mmol/L Carbon Dioxide 21 L (22-30) mmol/L Anion Gap 11 mmol/L BUN 15 (7-17) mg/dL Creatinine 0.61 (0.52-1.04) mg/dL Est GFR (CKD-EPI)AfAm >90 (>60 ml/min/1.73 sqM) Est GFR (CKD-EPI)NonAf 84 (>60 ml/min/1.73 sqM) Glucose 152 H (74-99) mg/dL POC Glucose (mg/dL) 148 H (70-110) mg/dL POC Glu [place]ather Sorter ID Alisha Beal Calcium 9.8 (8.4-10.2) mg/dL Total Bilirubin 0.8 (0.2-1.3) mg/dL AST 32 (14-36) U/L ALT 22 (4-34) U/L Alkaline Phosphatase 76 (38-126) U/L Total Protein 7.5 (6.3-8.2) g/dL Albumin 4.4 (3.5-5.0) g/dL Urine Color Urine Appearance (Clear) Urine pH (5.0-8.0) Ur Specific [place] (1.001-1.035) Urine Protein (Negative) Urine Glucose (UA) (Negative) Urine Ketones (Negative) Urine Blood (Negative) Urine Nitrite (Negative) Urine Bilirubin (Negative) Urine Urobilinogen (<2.0) mg/dL Ur Leukocyte Esterase (Negative) 06/24/23 Range/Units 02:42 WBC (3.8-10.6) k/uL RBC (3.80-5.40) m/uL Hgb (11.4-16.0) gm/dL Hct (34.0-46.0) % MCV (80.0-100.0) fL MCH (25.0-35.0) pg MCHC (31.0-37.0) g/dL RDW (11.5-15.5) % Plt Count (150-450) k/uL MPV Neutrophils % (Manual) % Band Neuts % (Manual) % Lymphocytes % (Manual) % Monocytes % (Manual) % Neutrophils # (Manual) (1.3-7.7) k/uL Lymphocytes # (Manual) (1.0-4.8) k/uL Monocytes # (Manual) (0-1.0) k/uL Nucleated RBCs (0-0) /100 WBC Manual Slide Review RBC Morphology Sodium (137-145) mmol/L Potassium (3.5-5.1) mmol/L Chloride (98-107) mmol/L Carbon Dioxide (22-30) mmol/L Anion Gap mmol/L BUN (7-17) mg/dL Creatinine (0.52-1.04) mg/dL Est GFR (CKD-EPI)AfAm (>60 ml/min/1.73 sqM) Est GFR (CKD-EPI)NonAf (>60 ml/min/1.73 sqM) Glucose (74-99) mg/dL POC Glucose (mg/dL) (70-110) mg/dL POC Glu [place] Sorter ID Calcium (8.4-10.2) mg/dL Total Bilirubin (0.2-1.3) mg/dL AST (14-36) U/L ALT (4-34) U/L Alkaline Phosphatase (38-126) U/L Total Protein (6.3-8.2) g/dL Albumin (3.5-5.0) g/dL Urine Color Light Yellow Urine Appearance Clear (Clear) Urine pH 7.5 (5.0-8.0) Ur Specific [place] 1.011 (1.001-1.035) Urine Protein Negative (Negative) Urine Glucose (UA) Negative (Negative) Urine Ketones Trace H (Negative) Urine Blood Negative (Negative) Urine Nitrite Negative (Negative) Urine Bilirubin Negative (Negative) Urine Urobilinogen <2.0 (<2.0) mg/dL Ur Leukocyte Esterase Negative (Negative) - EKG Data EKG Comments: EKG shows atrial flutter at 60 bpm, QRS 77, QT/QTC 390/398. Disposition Clinical Impression: Dizziness, Abdominal pain Disposition: HOME SELF-CARE Instructions (If sedation given, give patient instructions): Abdominal Pain (ED ), Dizziness (ED) Additional Instructions: Please return to the Emergency Department if symptoms worsen or any other concerns. Is patient prescribed a controlled substance at d/c from ED?: No Referrals: Juliocesar Roach DO [Primary Care Provider] - 1-2 days Time of Disposition: 05:04
[2023-06-24 04:55] LABS: Appearance,Urine Clear (Clear); Bilirubin,Urine Negative (Negative); Blood,Urine Negative (Negative); Color,Urine Light Yellow; Glucose,Urine (UA) Negative (Negative); Ketones,Urine Trace (Negative); Leukocyte Esterase,Urine Negative (Negative); Nitrite,Urine Negative (Negative); PH, Urine 7.5 (5.0-8.0); Protein,Urine Negative (Negative); Specific Gravity,Urine 1.011 (1.001-1.035); Urobilinogen,Urine <2.0 mg/dL (<2.0)
[2023-06-24 05:21] VITALS: BP 138/76; PULSE 55; RESP 16
== END 2023-06-24 05:21 | disposition home or self-care (01) ==
LOC: EC 23:22
DX: R42 Dizziness and giddiness (principal); R10.30 Lower abdominal pain, unspecified; J45.909 Unspecified asthma, uncomplicated; E11.9 Type 2 diabetes mellitus without complications; F41.9 Anxiety disorder, unspecified; E78.5 Hyperlipidemia, unspecified; I10 Essential (primary) hypertension; E07.9 Disorder of thyroid, unspecified; Z79.84 Long term (current) use of oral hypoglycemic drugs; Z79.02 Long term (current) use of antithrombotics/antiplatelets; Z79.899 Other long term (current) drug therapy; Z86.73 Personal history of transient ischemic attack (TIA), and cerebral infarction without residual deficits; Z79.890 Hormone replacement therapy; Z90.49 Acquired absence of other specified parts of digestive tract
CPT/HCPCS: 36415; 70450; 71045; 80053; 81003; 85025; 93005; 96360; 99284